=== PATIENT | male | born 1935 | race Caucasian/White ===

== ENCOUNTER 2017-10-27 22:49 | Inpatient (IN) | payer MEDICARE ==
[2017-10-27] MEDS ORDERED: methylPREDNISolone SOD SUCC PF 125 MG/2 ML VIAL. (22:59)
[2017-10-27] MEDS ORDERED: fentaNYL PF VIAL 100 MCG/2 ML VIAL (23:25)
[2017-10-27 23:35] LABS: ADD MAN DIFF? NO
[2017-10-27 23:37] LABS: BASO # 0.1 x10^3/uL (0.0-0.2); BASO % 1 % (0-3); EOS # 0.1 x10^3/uL (0.0-0.7); EOS % 2 % (0-3); HEMATOCRIT 40.9 % (39.0-53.0); HEMOGLOBIN 13.3 g/dL (13.0-17.5); LYMPH # 1.4 x10^3/uL (1.0-4.8); LYMPH % 16 % (24-48); MEAN CORPUSCULAR HEMOGLOBIN 32 pg (25-35); MEAN CORPUSCULAR HGB CONC 33 g/dL (31-37); MEAN CORPUSCULAR VOLUME 98 fL (79-100); MONO # 1.1 x10^3/uL (0.0-1.1); MONO % 12 % (0-9); NEUT # 6.4 x10^3uL (1.8-7.7); NEUT % 70 % (31-73); PLATELET COUNT 145 x10^3/uL (140-400); RED BLOOD COUNT 4.17 x10^6/uL (4.30-5.70); RED CELL DISTRIBUTION WIDTH 14.8 % (11.5-14.5); WHITE BLOOD COUNT 9.2 x10^3/uL (4.0-11.0)
[2017-10-27 23:51] LABS: MAGNESIUM 2.1 mg/dL (1.8-2.4)
[2017-10-27 23:52] LABS: ANION GAP 10 (6-14); BLOOD UREA NITROGEN 42 mg/dL (8-26); BUN/CREATININE RATIO 19 (6-20); CARBON DIOXIDE 28 mmol/L (21-32); CHLORIDE 99 mmol/L (98-107); CREATININE 2.2 mg/dL (0.7-1.3); GFR 28.9; GLUCOSE 345 mg/dL (70-99); POTASSIUM 4.7 mmol/L (3.5-5.1); SODIUM 137 mmol/L (136-145)
[2017-10-27 23:57] LABS: ALBUMIN 3.3 g/dL (3.4-5.0); ALBUMIN/GLOBULIN RATIO 0.8 (1.0-1.7); ALK PHOS 102 U/L (46-116); ALT (SGPT) 25 U/L (16-63); AST (SGOT) 23 U/L (15-37); TOTAL BILIRUBIN 0.6 mg/dL (0.2-1.0); TOTAL PROTEIN 7.2 g/dL (6.4-8.2)
[2017-10-28 00:01] LABS: TROPONINI 0.059 ng/mL (0.000-0.055)
[2017-10-28 00:05] LABS: NT-PRO BNP 8197 pg/mL (0-449)
[2017-10-28 00:33] LABS: PH COOX 7.24 (7.35-7.45)
[2017-10-28 00:37] LABS: BASE EXCESS COOX -4 mmol/L (-3-3); HCO3 COOX 25 mmol/L (21-28); PCO2 COOX 60 mmHg (35-46); PO2 COOX 225 mmHg (65-108); SAT O2 COOX 99 % (92-99)
[2017-10-28 00:38] LABS: FIO2 COOX 100
[2017-10-28] MEDS: FUROSEMIDE 20 MG/2 ML VIAL. IVP (00:45)
[2017-10-28] MEDS ORDERED: ETOMIDATE 20 MG/10 ML VIAL. IV (03:23)
[2017-10-28] MEDS ORDERED: fentaNYL PF VIAL 100 MCG/2 ML VIAL (03:24)
[2017-10-28] MEDS ORDERED: MIDAZOLAM HCL/PF 5 MG/5 ML VIAL. (03:24)
[2017-10-28] MEDS ORDERED: ROCURONIUM 50 MG/5 ML VIAL. (03:25)
[2017-10-28] MEDS ORDERED: SUCCINYLCHOLINE 200 MG/10 ML VIAL. (03:25)
[2017-10-28] MEDS ORDERED: DEXTROSE 50% 25 GM / 50ML DISP.SYRIN. IV (07:15)
[2017-10-28 07:22] LABS: TROPONINI 4.427 ng/mL (0.000-0.055)
[2017-10-28] MEDS: IPRATRPIUM/ALBUTEROL 0.5/2.5MG 3 ML NEBU. NEB ×4 (07:43→20:00)
[2017-10-28 08:08] LABS: BASE EXCESS ABG -3 mmol/L (-3-3); HCO3 ABG 21 mmol/L (21-28); PCO2 ABG 34 mmHg (35-46); PH ABG 7.42 (7.35-7.45); PO2 ABG 111 mmHg (65-108); SAT O2 ABG 97 % (92-99)
[2017-10-28 08:10] LABS: FIO2 ABG 40
[2017-10-28 12:30] LABS: TROPONINI 6.277 ng/mL (0.000-0.055)
[2017-10-28 13:54] LABS: BASE EXCESS ABG -2 mmol/L (-3-3); HCO3 ABG 23 mmol/L (21-28); PCO2 ABG 39 mmHg (35-46); PH ABG 7.38 (7.35-7.45); PO2 ABG 124 mmHg (65-108); SAT O2 ABG 97 % (92-99)
[2017-10-28 13:56] LABS: FIO2 ABG 40
[2017-10-28 14:09] LABS: MRSA BY PCR Negative (Negative)
[2017-10-28] MEDS: methylPREDNISolone SOD SUCC PF 125 MG/2 ML VIAL. IV ×2 (14:56→20:14)
[2017-10-28] MEDS: ALBUTEROL SULFATE 2.5 MG/3 ML NEBU. NEB ×2 (16:00→20:00)
[2017-10-28 17:13] LABS: POC GLUCOSE 171 mg/dL (70-99)
[2017-10-28] MEDS: ENOXAPARIN 40 MG/0.4 ML SYRINGE. SQ (17:57)
[2017-10-28] MEDS: FUROSEMIDE 40 MG TABLET. PO (17:58)
[2017-10-28] MEDS: ATORVASTATIN CALCIUM 10 MG TABLET. PO (17:58)
[2017-10-28] MEDS: GABAPENTIN 100 MG CAPSULE. PO (20:12)
[2017-10-28] MEDS: WARFARIN 10 MG TABLET. PO (20:12)
[2017-10-28] MEDS: LACTOBACILLUS RHAMNOSUS GG 1 CAPSULE. PO (20:12)
[2017-10-28] MEDS: RANOLAZINE 500 MG TAB.ER.12H PO (20:13)
[2017-10-28] MEDS: FLUTICASONE 50MCG/NASAL SPRAY 16GM BOTTLE. NS (20:15)
[2017-10-28] MEDS: AZELASTINE NASAL SPRAY 30ML BOTTLE. NS (20:15)
[2017-10-28] MEDS: INSULIN DETEMIR 300 UNITS/3 ML INSULN.PEN. SQ (20:19)
[2017-10-28 20:22] LABS: POC GLUCOSE 263 mg/dL (70-99)
[2017-10-28] MEDS: DULoxetine HCL 30 MG CAPSULE.DR PO (20:22)
[2017-10-28] MEDS ORDERED: traZODone 100 MG TABLET. PO (21:00)
[2017-10-28] MEDS: traMADol 50 MG TABLET PO ×2 (21:14→23:41)
[2017-10-28] MEDS: ASPIRIN 325 MG TABLET PO (23:40)
[2017-10-28] MEDS: NITROGLYCERIN PREMIX 250 ML IV (23:47)
[2017-10-29] MEDS: traMADol 50 MG TABLET PO ×3 (04:24→22:03)
[2017-10-29 05:30] LABS: BASO % 0 % (0-3); EOS % 0 % (0-3); HEMATOCRIT 35.1 % (39.0-53.0); HEMOGLOBIN 11.7 g/dL (13.0-17.5); LYMPH # 0.5 x10^3/uL (1.0-4.8); LYMPH % 5 % (24-48); MEAN CORPUSCULAR HEMOGLOBIN 32 pg (25-35); MEAN CORPUSCULAR HGB CONC 33 g/dL (31-37); MEAN CORPUSCULAR VOLUME 96 fL (79-100); MONO # 0.4 x10^3/uL (0.0-1.1); MONO % 4 % (0-9); NEUT # 9.5 x10^3uL (1.8-7.7); NEUT % 91 % (31-73); PLATELET COUNT 111 x10^3/uL (140-400); RED BLOOD COUNT 3.64 x10^6/uL (4.30-5.70); RED CELL DISTRIBUTION WIDTH 14.7 % (11.5-14.5); WHITE BLOOD COUNT 10.4 x10^3/uL (4.0-11.0)
[2017-10-29 05:33] LABS: ADD MAN DIFF? YES
[2017-10-29 05:55] LABS: ANION GAP 9 (6-14); BLOOD UREA NITROGEN 46 mg/dL (8-26); CALCIUM 8.6 mg/dL (8.5-10.1); CARBON DIOXIDE 26 mmol/L (21-32); CHLORIDE 99 mmol/L (98-107); CHOLESTEROL 124 mg/dL (0-200); CREATININE 1.8 mg/dL (0.7-1.3); GFR 36.5; GLUCOSE 253 mg/dL (70-99); HDLC 21 mg/dL (40-60); LDLC 82 mg/dL (0-100); NON-HDL CHOLESTEROL 103 mg/dL (0-129); POTASSIUM 4.2 mmol/L (3.5-5.1); SODIUM 134 mmol/L (136-145); TRIGLYCERIDES 104 mg/dL (0-150); VLDLC 21 mg/dL (0-40)
[2017-10-29 05:59] LABS: CHOLESTEROL/HDL RATIO 5.9
[2017-10-29] MEDS ORDERED: FUROSEMIDE 80 MG TABLET. PO (08:00)
[2017-10-29] MEDS: LACTOBACILLUS RHAMNOSUS GG 1 CAPSULE. PO ×2 (08:01→22:03)
[2017-10-29] MEDS: methylPREDNISolone SOD SUCC PF 125 MG/2 ML VIAL. IV ×2 (08:01→22:02)
[2017-10-29] MEDS: ASPIRIN ENTERIC COATED 81 MG TABLET.DR. PO (08:01)
[2017-10-29] MEDS: FUROSEMIDE 80 MG TABLET. PO ×2 (08:01→22:05)
[2017-10-29] MEDS: TAMSULOSIN 0.4 MG CAP.ER.24H. PO (08:01)
[2017-10-29] MEDS: GABAPENTIN 100 MG CAPSULE. PO ×2 (08:02→13:23)
[2017-10-29] MEDS: RANOLAZINE 500 MG TAB.ER.12H PO ×2 (08:02→22:05)
[2017-10-29] MEDS: DULoxetine HCL 30 MG CAPSULE.DR PO ×2 (08:02→22:03)
[2017-10-29] MEDS: PANTOPRAZOLE 40 MG TABLET.DR. PO (08:02)
[2017-10-29] MEDS: NITROGLYCERIN 0.4MG/HR PATCH. TD (08:03)
[2017-10-29] MEDS: CETIRIZINE HCL 10 MG TABLET. PO (08:03)
[2017-10-29] MEDS: CARVEDILOL 12.5 MG TABLET. PO ×2 (08:06→19:10)
[2017-10-29] MEDS: AZELASTINE NASAL SPRAY 30ML BOTTLE. NS ×2 (08:06→22:06)
[2017-10-29] MEDS: FLUTICASONE 50MCG/NASAL SPRAY 16GM BOTTLE. NS ×2 (08:06→22:06)
[2017-10-29] MEDS: ALBUTEROL SULFATE 2.5 MG/3 ML NEBU. NEB ×4 (08:17→19:42)
[2017-10-29 08:18] LABS: % BANDS 17 % (0-9); OVALOCYTES FEW; PLT ESTIMATE DECREASED (ADEQUATE)
[2017-10-29 08:19] LABS: % LYMPHS 4 % (24-48); % MONOS 3 % (0-10); % SEGS 76 % (35-66)
[2017-10-29 11:12] LABS: INR 2.8 (0.8-1.1); PROTHROMBIN TIME PATIENT 27.9 SEC (11.7-14.0)
[2017-10-29] MEDS: CLOPIDOGREL BISULFATE 75 MG TABLET PO (15:00)
[2017-10-29 15:09] LABS: TROPONINI 2.427 ng/mL (0.000-0.055)
[2017-10-29] MEDS: ENOXAPARIN 40 MG/0.4 ML SYRINGE. SQ (17:00)
[2017-10-29 20:47] LABS: POC GLUCOSE 281 mg/dL (70-99)
[2017-10-29] MEDS: INSULIN DETEMIR 300 UNITS/3 ML INSULN.PEN. SQ (22:12)
[2017-10-29] MEDS: SIMETHICONE 80 MG TAB.CHEW PO (22:59)
[2017-10-30] MEDS: SIMETHICONE 80 MG TAB.CHEW PO (00:12)
[2017-10-30] MEDS: ALBUTEROL SULFATE 2.5 MG/3 ML NEBU. NEB ×4 (03:31→17:24)
[2017-10-30 04:12] LABS: ADD MAN DIFF? NO
[2017-10-30 04:58] LABS: BASO % 0 % (0-3); EOS % 0 % (0-3); HEMATOCRIT 38.1 % (39.0-53.0); HEMOGLOBIN 12.6 g/dL (13.0-17.5); LYMPH # 0.4 x10^3/uL (1.0-4.8); LYMPH % 3 % (24-48); MEAN CORPUSCULAR HEMOGLOBIN 32 pg (25-35); MEAN CORPUSCULAR HGB CONC 33 g/dL (31-37); MEAN CORPUSCULAR VOLUME 96 fL (79-100); MONO # 0.3 x10^3/uL (0.0-1.1); MONO % 3 % (0-9); NEUT # 11.1 x10^3uL (1.8-7.7); NEUT % 94 % (31-73); PLATELET COUNT 118 x10^3/uL (140-400); RED BLOOD COUNT 3.97 x10^6/uL (4.30-5.70); RED CELL DISTRIBUTION WIDTH 15.1 % (11.5-14.5); WHITE BLOOD COUNT 11.9 x10^3/uL (4.0-11.0)
[2017-10-30 05:24] LABS: ALBUMIN/GLOBULIN RATIO 0.8 (1.0-1.7); ALK PHOS 75 U/L (46-116); ALT (SGPT) 29 U/L (16-63); ANION GAP 10 (6-14); AST (SGOT) 28 U/L (15-37); BLOOD UREA NITROGEN 50 mg/dL (8-26); BUN/CREATININE RATIO 29 (6-20); CALCIUM 9.1 mg/dL (8.5-10.1); CARBON DIOXIDE 26 mmol/L (21-32); CHLORIDE 101 mmol/L (98-107); CREATININE 1.7 mg/dL (0.7-1.3); GLUCOSE 220 mg/dL (70-99); POTASSIUM 4.4 mmol/L (3.5-5.1); SODIUM 137 mmol/L (136-145); TOTAL BILIRUBIN 0.5 mg/dL (0.2-1.0); TOTAL PROTEIN 6.8 g/dL (6.4-8.2)
[2017-10-30 08:23] LABS: POC GLUCOSE 201 mg/dL (70-99)
[2017-10-30] MEDS: FLUTICASONE 50MCG/NASAL SPRAY 16GM BOTTLE. NS (08:47)
[2017-10-30] MEDS: AZELASTINE NASAL SPRAY 30ML BOTTLE. NS (08:47)
[2017-10-30] MEDS: NITROGLYCERIN 0.4MG/HR PATCH. TD (08:48)
[2017-10-30] MEDS: RANOLAZINE 500 MG TAB.ER.12H PO (08:48)
[2017-10-30] MEDS: ASPIRIN ENTERIC COATED 81 MG TABLET.DR. PO (08:49)
[2017-10-30] MEDS: TAMSULOSIN 0.4 MG CAP.ER.24H. PO (08:49)
[2017-10-30] MEDS: FUROSEMIDE 80 MG TABLET. PO (08:49)
[2017-10-30] MEDS: methylPREDNISolone SOD SUCC PF 125 MG/2 ML VIAL. IV (08:49)
[2017-10-30] MEDS: DULoxetine HCL 30 MG CAPSULE.DR PO (08:49)
[2017-10-30] MEDS: LACTOBACILLUS RHAMNOSUS GG 1 CAPSULE. PO (08:49)
[2017-10-30] MEDS: CLOPIDOGREL BISULFATE 75 MG TABLET PO (08:50)
[2017-10-30] MEDS: PANTOPRAZOLE 40 MG TABLET.DR. PO (08:50)
[2017-10-30] MEDS: CARVEDILOL 12.5 MG TABLET. PO (08:52)
[2017-10-30] MEDS: CETIRIZINE HCL 10 MG TABLET. PO (09:47)
[2017-10-30 11:53] LABS: POC GLUCOSE 292 mg/dL (70-99)
[2017-10-30] MEDS ORDERED: WARFARIN 7.5 MG TABLET. PO (16:00)
[2017-10-31] MEDS ORDERED: WARFARIN 7.5 MG TABLET. PO (16:00)
== END 2017-10-30 17:55 | disposition home or self-care (01) | DRG 208 ==
LOC: 1 WEST ICU 23:46 → ER 22:49 → 2 NORTH 10-29 13:54
PROC: 5A1935Z Respiratory Ventilation, Less than 24 Consecutive Hours (ICD-10-PCS; principal; 2017-10-27)
PROC: 0BH17EZ Insertion of Endotracheal Airway into Trachea, Via Natural or Artificial Opening (ICD-10-PCS; 2017-10-27)
DX: J96.21 Acute and chronic respiratory failure with hypoxia (principal); I21.4 Non-ST elevation (NSTEMI) myocardial infarction; I50.43 Acute on chronic combined systolic (congestive) and diastolic (congestive) heart failure; N17.9 Acute kidney failure, unspecified; E11.22 Type 2 diabetes mellitus with diabetic chronic kidney disease; E11.40 Type 2 diabetes mellitus with diabetic neuropathy, unspecified; I48.91 Unspecified atrial fibrillation; E11.65 Type 2 diabetes mellitus with hyperglycemia; G47.31 Primary central sleep apnea; J44.1 Chronic obstructive pulmonary disease with (acute) exacerbation; I13.0 Hypertensive heart and chronic kidney disease with heart failure and stage 1 through stage 4 chronic kidney disease, or unspecified chronic kidney disease; E66.9 Obesity, unspecified; E78.5 Hyperlipidemia, unspecified; F32.9 Major depressive disorder, single episode, unspecified; F41.9 Anxiety disorder, unspecified; G89.4 Chronic pain syndrome; G47.33 Obstructive sleep apnea (adult) (pediatric); I25.5 Ischemic cardiomyopathy; J96.22 Acute and chronic respiratory failure with hypercapnia; K21.9 Gastro-esophageal reflux disease without esophagitis; K58.9 Irritable bowel syndrome, unspecified; N18.3 Chronic kidney disease, stage 3 (moderate); N40.0 Benign prostatic hyperplasia without lower urinary tract symptoms; E21.3 Hyperparathyroidism, unspecified; M19.90 Unspecified osteoarthritis, unspecified site; I25.10 Atherosclerotic heart disease of native coronary artery without angina pectoris; Z95.1 Presence of aortocoronary bypass graft; Z82.49 Family history of ischemic heart disease and other diseases of the circulatory system; Z86.79 Personal history of other diseases of the circulatory system; Z87.891 Personal history of nicotine dependence; Z95.810 Presence of automatic (implantable) cardiac defibrillator; Z79.01 Long term (current) use of anticoagulants; Z91.041 Radiographic dye allergy status; Z88.0 Allergy status to penicillin; Z88.5 Allergy status to narcotic agent; Z88.8 Allergy status to other drugs, medicaments and biological substances; Z68.37 Body mass index [BMI] 37.0-37.9, adult
CPT/HCPCS: 31500; 36415; 36600; 71045; 80048; 80053; 80061; 82805; 82962; 83735; 83880; 84484; 85007; 85025; 85610; 87641; 93005; 93306; 94002; 94003; 94640; 94760; 97116-GP; 97162-GP; 97166-GO; 97535-GO; 99291-25; J1650; J1815; J1956; J2930; J3010; J3490; J7613; J7620

== ENCOUNTER 2020-12-13 10:49 | Emergency (ER) | payer MEDICARE ==
[2018-03-23 11:00] VITALS: BP 115/55
[~2020-12-13 10:49] MED LIST: ALBU2.5V5 NEB; ALBU2.5V8 INH; ALUM320O4 PO; AMOX875T PO; ASPI-482 PO; ATOR10TA60 PO; AZEL23SP NS; BUME1TAB3 PO; CARV25TA PO; CARV25TA2 PO; CEPH500C PO; CLOP75TA PO; DULO30CA2 PO; FEXO180T16 PO; FURO-68 PO; FURO80TA72 PO; GABA-585 PO; INSU100I13 SQ; LACT1CAP6 PO; NITR0.4T22 SL; NITR1PAT73 TD; PANT40TA77 PO; Pantoprazole PO; RANO10002 PO; SACU1TAB4 PO; TAMS0.4C97 PO; TRAM50TA PO; TRAZ-123 PO; UBIQ75CA PO; WARF10TA45 PO; WARF5TAB2 PO
[2020-12-13] MEDS ORDERED: traMADol 50 MG TABLET ONE (13:30)
--- NOTE | 2020-12-13 16:45 | RAD ---
EXAM: CT Thoracic Spine without IV contrast INDICATION: Reason: FALL, BACK PAIN / Spl. Instructions: / History: TECHNIQUE: Multi-detector row CT images were obtained through the thoracic spine without the use of IV contrast. Post-processing sagittal and coronal reconstructed images were obtained for interpretati on. All CT scans performed at this facility utilize dose optimization techniques as appropriate to th e exam, including the following: Automated exposure control and adjustment of the mA and/or KV accord ing to patient size (this includes techniques or standardized protocols for targeted exams where dose is indication/reason for exam). COMPARISON: CT L-spine without IV contrast FINDINGS: ALIGNMENT: Alignment is within normal limits. OSSEOUS: Acute nondisplaced fractures of the posterior lateral left ninth through 11th ribs are note d. DISC SPACES: Multilevel disc degenerative changes. FACET JOINTS: Unremarkable. SPINAL CANAL: Unremarkable. NEUROFORAMINA: Unremarkable. SOFT TISSUES: Small left greater than right bilateral pleural effusions. Extensive abdominal aortic calcifications with ectasia up to 3.6 cm. IMPRESSION: Acute left 9th through 11th rib fractures with small left hemothorax. Otherwise no acute traumatic findings in the thoracic spine. EXAM: CT Lumbar Spine without IV contrast INDICATION: Reason: FALL, BACK PAIN / Spl. Instructions: / History: TECHNIQUE: Multi-detector row CT images were obtained through the lumbar spine without the use of IV contrast. Post-processing sagittal and coronal reconstructed images were obtained for interpretation . All CT scans performed at this facility utilize dose optimization techniques as appropriate to the exam, including the following: Automated exposure control and adjustment of the mA and/or KV accordin g to patient size (this includes techniques or standardized protocols for targeted exams where dose i s indication/reason for exam). COMPARISON: None FINDINGS: The lowest fully formed disc is referred to as the L5-S1 level. ALIGNMENT: Alignment is within normal limits. OSSEOUS: No evidence of fracture or bone destruction. DISC SPACES: Unremarkable. FACET JOINTS: Unremarkable. SPINAL CANAL: Unremarkable. NEUROFORAMINA: Unremarkable. SOFT TISSUES: Unremarkable. IMPRESSION: No acute fractures on CT of the lumbar spine. Electronically signed by: Kellie Vides MD (12/13/2020 4:43 PM) [id number]
[2020-12-13 20:24] LABS: CALCIUM 9.9 mg/dL (8.5-10.1); CREATININE 2.3 mg/dL (0.7-1.3); GFR 27.3; TOTAL BILIRUBIN 0.8 mg/dL (0.2-1.0); TOTAL PROTEIN 6.7 g/dL (6.4-8.2)
[2020-12-13 20:25] LABS: POTASSIUM 3.8 mmol/L (3.5-5.1)
[2020-12-13 20:26] LABS: DIRECT BILIRUBIN 0.2 mg/dL (0.0-0.2)
[2020-12-13 20:28] LABS: HEMATOCRIT 32.1 % (39.0-53.0); HEMOGLOBIN 10.9 g/dL (13.0-17.5); LYMPH % 7 % (24-48); MEAN CORPUSCULAR HEMOGLOBIN 33 pg (25-35); MEAN CORPUSCULAR HGB CONC 34 g/dL (31-37); MEAN CORPUSCULAR VOLUME 96 fL (79-100); MONO % 9 % (0-9); NEUT % 82 % (31-73); PLATELET COUNT 128 x10^3/uL (140-400); RED BLOOD COUNT 3.34 x10^6/uL (4.30-5.70); RED CELL DISTRIBUTION WIDTH 14.3 % (11.5-14.5); WHITE BLOOD COUNT 10.4 x10^3/uL (4.0-11.0)
[2020-12-13 20:29] LABS: EOS # 0.2 x10^3/uL (0.0-0.7); EOS % 2 % (0-3); LYMPH # 0.7 x10^3/uL (1.0-4.8); MONO # 0.9 x10^3/uL (0.0-1.1); NEUT # 8.5 x10^3/uL (1.8-7.7)
[2020-12-13 20:30] LABS: BILIRUBIN,URINE NEGATIVE (NEG); CLARITY,URINE CLEAR; COLOR,URINE YELLOW; NITRITE,URINE NEGATIVE (NEG); PROTEIN,URINE NEGATIVE (NEG-TRACE); UROBILINOGEN,URINE 0.2 mg/dL (0.2 mg/dL)
[2020-12-13 20:31] LABS: BACTERIA,URINE 0 /HPF (0-FEW); WBC,URINE 0 /HPF (0-4)
[2020-12-13 20:34] LABS: PROTHROMBIN TIME PATIENT 25.1 SEC (11.7-14.0)
--- NOTE | 2020-12-14 08:45 | RAD ---
Ribs left with PA chest History: Pain PA view of the chest and dedicated views of the left ribs were obtained. The heart is mildly enlarged. The left-sided defibrillator and median sternotomy wires. The pulmonary vessels appear normal. The lungs are clear. There is density along the pleural margin on the left. The visualized osseous structures appear intact. Impression: Cardiomegaly and mild left pleural effusion. No evidence of a bony displaced rib fracture. Electronically signed by: Cal Lira III, MD (12/14/2020 8:43 AM) [id number]
--- NOTE | 2020-12-15 04:14 | EKG ---
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
== END 2020-12-13 14:57 | disposition home or self-care (01) ==
LOC: ER 10:49
DX: R07.81 Pleurodynia (principal)
CPT/HCPCS: 36415; 71101; 72128; 72131; 80048; 80076; 81001; 85025; 85610; 93005; 99285